=== PATIENT | male | born 1975 | race Caucasian/White ===

== ENCOUNTER → 2017-05-27 | Outpatient (CLI) | payer MEDICARE, MEDICAID ==
[~2017-05-27] MED LIST: ARIP5TAB13 PO; ATOR20TA66 PO; BUPR100T6 PO; CLON1TAB27 PO; DOXY100C2 PO
--- NOTE | 2017-05-27 21:22 | Diagnostic Imaging Report ---
EXAMINATION: Scrotal ultrasound. INDICATION: Right groin pain. FINDINGS: The right testicle is 4.0 x 2.3 x 3.7 cm. The left testicle is 4.3 x 2.4 x 2.5 cm. Both testicles demonstrate normal echotexture with no focal mass. There is arterial and venous waveforms demonstrated over the testicles. There is moderate varicocele on the left side with the vein caliber up to 4.5 mm. No varicocele on the right side is seen. There is no solid mass or fluid collection. No hydrocele. IMPRESSION: Moderate left apices. Dictated by: Dictated on workstation # [id number]
== END ==
LOC: RAD 16:15
PROVIDERS: ATTEND Family Medicine
DX: I86.1 Scrotal varices (principal); N50.82 Scrotal pain
CPT/HCPCS: 76870

== ENCOUNTER 2019-05-18 13:00 | Outpatient (CLI) | payer MEDICARE, MEDICAID ==
[~2019-05-18] VITALS: Ht 180.3 cm; Wt 99.8 kg
[2019-05-18] MEDS ORDERED: PROP20TA5 PO (13:06)
[2019-05-18] MEDS ORDERED: CLON0.5T13 PO (13:06)
[2019-05-18] MEDS ORDERED: LOSA25TA41 PO (13:06)
[2019-05-18] MEDS ORDERED: ARIP10TA17 PO (13:06)
[2019-05-18] MEDS ORDERED: ROSU20TA32 PO (13:06)
[2019-05-18] MEDS ORDERED: BUPR150T7 PO (13:06)
== END 2019-05-18 15:17 | disposition home or self-care (01) ==
LOC: PREOP 13:00
PROVIDERS: ATTEND Surgery
DX: Z01.818 Encounter for other preprocedural examination (principal); K92.1 Melena

== ENCOUNTER 2019-05-22 09:53 | Day surgery (SDC) | payer MEDICARE, MEDICAID ==
[~2019-05-22] VITALS: Ht 180.3 cm; Wt 99.8 kg
[2019-05-22] VITALS (8 sets, daily range): BP systolic 86–127; BP diastolic 51–85
[~2019-05-22 09:53] MED LIST changes: +ARIP10TA17 PO; +BUPR150T7 PO; +CLON0.5T13 PO; +LACTATED RINGERS 1,000 ML IV ONE; +LOSA25TA41 PO; +PROP20TA5 PO; +ROSU20TA32 PO
[2019-05-22] MEDS ORDERED: LACTATED RINGERS 1,000 ML IV STA (10:38)
--- NOTE | 2019-05-22 10:55 | Progress Note-Pre Operative ---
Pre-Operative Progress Note H&P Reviewed The H&P was reviewed, patient examined and no changes noted. Time Seen by Provider: 10:53 Date H&P Reviewed: May 22, 2019 Time H&P Reviewed: 10:53 Pre-Operative Diagnosis: Rectal bleed, family hx of colon ca FOUZIA HERNANDEZ DO May 22, 2019 10:55
[2019-05-22] MEDS ORDERED: PROPOFOL INJECTION 50 ML IV ONE ×2 (11:07→11:30)
[2019-05-22] MEDS ORDERED: MIDAZOLAM 2 MG/2 ML (VERSED) VIAL ONE ×2 (11:07→11:21)
--- NOTE | 2019-05-22 11:45 | Progress Note-Post Operative ---
Post-Operative Progess Note Surgeon (s)/Boring Machine Operator Production (s) Surgeon FOUZIA HERNANDEZ DO Boring Machine Operator Production: none Pre-Operative Diagnosis Rectal bleed, family hx of colon ca Post-Operative Diagnosis Rectal polyp Internal hemorrhoids ?friable tissue Procedure & Operative Findings Date of Procedure 05/22/19 Procedure Performed/Findings Colon with bx Anesthesia Type IV sedation by EXHAUST AND MUFFLER REPAIRER Estimated Blood Loss Estimated blood loss (mL): scant Specimens/Packing Specimens Removed bx of rectal polyp FOUZIA HERNANDEZ DO May 22, 2019 11:45
--- NOTE | 2019-05-22 11:47 | Endoscopy Discharge Instruct ---
Endo Procedure/Findings Findings 1.: Polyp 2.: Internal Hemorrhoids Discharge Instructions - Activity: You might feel a little sleepy until tomorrow. This is due to the medicine you received to relax you. Until tomorrow, you should: NOT drive a car, operate machinery or power tools. NOT drink any alcoholic beverages. NOT make any important decisions or sign importortant papers. Do not return to work until tomorrow, unless otherwise instructed. Resume previous activities tomorrow. Diet: Start by taking liquids. If you tolerate liquids, advance to solid food. make an appointment for one week Notify Physician - If you experience excessive bleeding, unusual abdominal pain, fever, or chest pain, contact your doctor immediately. FOUZIA HERNANDEZ DO May 22, 2019 11:47
--- NOTE | 2019-05-22 14:28 | Anesthesia-General Post-Op ---
MAC Patient Condition Mental Status/LOC: Same as Preop Cardiovascular: Satisfactory Nausea/Vomiting: Absent Respiratory: Satisfactory Pain: Controlled Complications: Absent Post Op Complications Complications None Follow Up Care/Instructions Patient Instructions None needed. Anesthesiology Discharge Order Discharge Order Patient is doing well, no complaints, stable vital signs, no apparent adverse anesthesia problems. No complications reported per nursing. CHELSEA MCDANIEL CRNA May 22, 2019 14:28
--- NOTE | 2019-05-23 17:11 | OPERATIVE REPORT ---
DATE OF SERVICE: 05/22/2019 PREOPERATIVE DIAGNOSES: Rectal bleed and family history of colon cancer. POSTOPERATIVE DIAGNOSES: Colon polyp, internal hemorrhoids and questionable friable tissue. PROCEDURE PERFORMED: Colonoscopy with biopsy. SURGEON: Joni Damon DO. DEALER RELATIONSHIP MANAGER: None. ANESTHESIA: IV sedation by the LAUNDRY PRESSER. SPECIMEN: Biopsy of rectal polyp. BLOOD LOSS: Scant. FLUIDS: Per Anesthesia. POSTOPERATIVE CONDITION: Stable. INDICATION FOR PROCEDURE: The patient is a 44-year-old male who had an episode of rectal bleed and he has a family history of colon cancer, needed a workup. FINDINGS: The patient had a small polyp in the rectum and he had some what looked like friable tissue or possibly AVMs in the cecum, otherwise no other obvious pathology. PROCEDURE NOTE: After informed consent was obtained, the patient was brought to the endoscopy suite, placed in bed in left lateral decubitus position. He was administered IV sedation by the LAUNDRY PRESSER who then monitored his vitals the entire time, heart rate, blood pressure and pulse ox and the scope was inserted all the way to 140 cm, able to visualize the cecum, took a picture of appendiceal orifice, noted the ileocecal valve and then slowly withdrew the scope insufflating to look circumferentially at the hernandez, looking the cecum and the cecum looked good. There was some friable tissue, possible AVM. This may have been the cause of his bleeding. Continued up the ascending colon to the hepatic flexure, then down the transverse colon to the splenic flexure, then into the descending colon, down in the sigmoid and finally into the rectum. In the rectum, saw a small flat polyp, did a biopsy of this and then retroflexed the scope in the rectal vault, saw some internal hemorrhoids, probably grade II, took a picture of this and then removed the scope. The patient tolerated the procedure, recovered in endoscopy suite. Job ID: [id number] DocumentID: [id number] Dictated Date: 05/23/2019 09:55:49 Hydroelectric Production Manager Date: 05/23/2019 17:10:37 Dictated By: JONI DAMON DO
== END 2019-05-22 12:45 ==
LOC: ENDO 09:53
PROVIDERS: ATTEND Surgery
DX: K63.5 Polyp of colon (principal); K62.5 Hemorrhage of anus and rectum; K64.8 Other hemorrhoids; F20.9 Schizophrenia, unspecified; I10 Essential (primary) hypertension; F32.9 Major depressive disorder, single episode, unspecified; E66.9 Obesity, unspecified; Z68.30 Body mass index [BMI] 30.0-30.9, adult; Z79.899 Other long term (current) drug therapy; Z85.038 Personal history of other malignant neoplasm of large intestine; Z80.0 Family history of malignant neoplasm of digestive organs
CPT/HCPCS: 88305

== ENCOUNTER → 2020-11-26 | Outpatient (CLI) | payer MEDICARE, MEDICAID ==
[~2020-11-26] VITALS: Ht 180 cm; Wt 98.0 kg
[~2020-11-26] MED LIST changes: +BUPR150T24 PO; -BUPR150T7 PO; +CATHETER FLUSH 10 ML SYR IV PRN; -CLON0.5T13 PO; +CLON0.5T4 PO; -LACTATED RINGERS 1,000 ML IV ONE; +REGADENOSON 0.4 MG/5 ML SYR (LEXISCAN) IV ONE
[2020-11-26 13:26] VITALS: BP 146/91
== END ==
LOC: CARD 11:26
PROVIDERS: ATTEND Internal Medicine Cardiovascular Disease
DX: I11.9 Hypertensive heart disease without heart failure (principal)
CPT/HCPCS: 78452; 93017; 93306; A9502